=== PATIENT | male | born 1990 | race Hispanic/Latino ===

== ENCOUNTER 2017-11-15 05:37 | Day surgery (SDC) | payer OTHER ==
[~2017-11-15] VITALS: Ht 167.6 cm; Wt 83.9 kg
--- NOTE | 2017-11-15 08:24 | NUR ---
11/15/17 0824 Peg Mott 0816 PT ARRIVED IN PACU ASLEEP WITH ORAL AIRWAY IN PLACE. TRANSPORT GUARDS AT BEDSIDE.
[2017-11-15] MEDS ORDERED: NORCO 5-325 TA1 EACH PO (09:11)
--- NOTE | 2017-11-15 10:21 | OR ---
[facility] [address], [place] [address] Signed DATE OF OPERATION: 11/15/2017 SURGEON: Radha Prescott MD PREOPERATIVE DIAGNOSIS: Incarcerated umbilical hernia (6 mm). POSTOPERATIVE DIAGNOSIS: Incarcerated umbilical hernia (6 mm). PROCEDURE: Primary umbilical herniorrhaphy with intraabdominal Ventralex mesh (4.3 cm). ESTIMATED BLOOD LOSS: None. INDICATIONS: Reema is a 27-year-old gentleman from our [facility]. He had worked as a welder production line arc. He has noticed he has swelling at the umbilicus. He said he was generally able to push it back inside, but it is painful. When I saw him at the shelter, it looked like we could push it back inside. However, today even after general anesthesia, we were not able to reduce that hernia. In the office, I explained to him the nature of an umbilical hernia along with the difference between the primary suture repair and a mesh repair. He understands expected intraop and postop course. We did review the risks including, but not limited to bleeding, infection, scarring, change in contour of the skin, damage to bowel, infection of mesh, requiring removal, recurrent hernias and chronic pain. He has expressed understanding and would like to proceed. PROCEDURE NOTE: Adriano was taken into our operating room and placed in a supine position under general endotracheal tube anesthesia. He was given preoperative antibiotics along with subcutaneous heparin. SCDs were utilized. He was prepped and draped in usual sterile fashion. After this, a standard infraumbilical transverse incision was made, and carried down around the umbilicus bluntly and with the cautery. The umbilical hernia was from the fascia with the help of the cautery. He had a ball of fat every bit of a centimeter and half wide. It was amputated and passed off the field. Even with the abdomen open, we could not reduce that fat. The fascial defect was about 6 mm in diameter. We opened that an additional 4 mm. We then chose our 4.3 cm round Ventralex mesh and placed that into the abdominal cavity and brought it up flush against the posterior abdominal wall. After this, the fascial defect was closed transversely Electronically Signed By: RADHA PRESCOTT MD 11/15/17 1021 PATIENT NAME: REMEA SEXTON OPERATIVE REPORT DATE OF : 88 REPORT #: [id number] PHYSICIAN: RADHA PRESCOTT MD PCP: ROBSON BERG MD REPORT IS CONFIDENTIAL AND NOT TO BE RELEASED WITHOUT AUTHORIZATION [facility] [address], [place] [address] Signed with a running #1 Prolene suture. Several passes of the suture went through the tab on the mesh to help hold it in place. The tab was then cut flush with the fascia and discarded. Local anesthetic was then copiously injected into the abdominal wall and subcutaneous tissues. The wound was irrigated and suctioned out until clear. The umbilical skin was then held down the midline fascia with an interrupted 2-0 PDS suture. The dermis was reapproximated with interrupted 3-0 subcuticular Monocryl sutures. The skin edges were reapproximated with a running 6-0 fast absorbing plain gut suture. Dry gauze and tape were then applied. Adriano was then awakened from his anesthesia, extubated in the OR, and taken to recovery room in stable condition. Radha Prescott MD ALB/MODL /[id number] cc: MD Robson Martinez MD Copies: RADHA PRESCOTT MD, LELAND MD ~ Electronically Signed By: RADHA PRESCOTT MD 11/15/17 1021 PATIENT NAME: REEMA SEXTON OPERATIVE REPORT DATE OF : 88 REPORT #: [id number] PHYSICIAN: RADHA PRESCOTT MD PCP: ROBSON BERG MD REPORT IS CONFIDENTIAL AND NOT TO BE RELEASED WITHOUT AUTHORIZATION
== END 2017-11-15 10:35 | disposition home or self-care (01) ==
LOC: DS 05:37
PROVIDERS: Colon & Rectal Surgery
PROC: 0WUF0JZ Supplement Abdominal Wall with Synthetic Substitute, Open Approach (ICD-10-PCS; principal; 2017-11-15 06:45)
DX: K42.0 Umbilical hernia with obstruction, without gangrene (principal)
CPT/HCPCS: 00750; C1781; J0330; J0690; J1100; J1644; J1885; J2250; J2405; J2704; J3010; J7120